=== PATIENT | male | born 1965 | race Caucasian/White ===

== ENCOUNTER 2017-03-08 16:01 | Emergency (ER) | payer BC ==
[2017-03-08 16:16] VITALS: BP 139/97
--- NOTE | 2017-03-08 17:17 | EDM.PDOCBH ---
ED HPI GENERAL MEDICAL PROBLEM - General Chief Complaint: Behavioral/Psych Stated Complaint: DEPRESSION Time Seen by Provider: 03/08/17 16:45 Source of Information: Reports: Patient History Limitations: Reports: No Limitations - History of Present Illness INITIAL COMMENTS - FREE TEXT/NARRATIVE: Patient is a 51-year-old male who presents to the ED complaining of depression. 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 States he's been under more stress recently with the drought and crop prices. He has been evaluated by [facility] for depression with modifications to his medications. Currently the patient is taking Effexor 150 mg twice a day and Remeron 45 mg every day. Has been taking clonazepam and olanzapine as needed. States they have been increasing his medications. States he continues to feel depressed, lacking motivation, and excessively tired. Denies any suicidal or homicidal ideations. No hallucinations noted. States he attempted to go to the [facility] partial hospitalization program last week and was scheduled to be seen on . The patient got scared did not show up. He called Monday and they told him it would be 2 weeks until he is able to be seen. He was hoping to be evaluated by Dr. Saavedra while in the ED via teleconferencing. Again patient has no suicidal or homicidal ideations. He has not been consuming any alcohol and does not use recreational drug use. He's been taking all his medications as prescribed. - Related Data Allergies Allergy/AdvReac Type Severity Reaction Status Date / Time No Known Allergies Allergy Verified 03/08/17 16:16 Home Meds: Home Meds ClonazePAM [KlonoPIN] 1 mg PO BID PRN 03/08/17 [History] Mirtazapine [Remeron] 45 mg PO DAILY 03/08/17 [History] Venlafaxine [Effexor XR] 150 mg PO BID 03/08/17 [History] buPROPion [Wellbutrin SR] 100 mg PO QAM #30 tab.sr 03/08/17 [Rx] Past Medical History - Past Health History Medical/Surgical History: Denies Medical/Surgical History Psychiatric History: Reports: Anxiety, Depression Social & Family History - Family History Family Medical History: Noncontributory - Tobacco Use Smoking Status *Q: Never Smoker - Caffeine Use Caffeine Use: Reports: None - Recreational Drug Use Recreational Drug Use: No ED ROS GENERAL - Review of Systems Review Of Systems: See Below Constitutional: Reports: No Symptoms Respiratory: Reports: No Symptoms Cardiovascular: Reports: No Symptoms GI/Abdominal: Reports: No Symptoms Neurological: Reports: No Symptoms Psychiatric: Reports: Depression. Denies: Agitation, Anxiety, Confusion, Cravings, Hallucinations, Homicidal Ideation, Mood Lability, Suicidal Ideation ED EXAM, BEHAVIORAL HEALTH - Physical Exam Exam: See Below Exam Limited By: No Limitations General Appearance: Alert, WD/WN, No Apparent Distress Ears: Hearing Grossly Normal Nose: Normal Inspection Throat/Mouth: Normal Voice, No Airway Compromise Neck: Normal Inspection, Supple Respiratory/Chest: No Respiratory Distress, Lungs Clear, Normal Breath Sounds, No Accessory Muscle Use Cardiovascular: Normal Peripheral Pulses, Regular Rate, Rhythm GI/Abdominal: Normal Bowel Sounds, Soft, Non-Tender, No Organomegaly Neurological: Alert, Normal Mood/Affect, CN II-XII Intact, Normal Cognition, No Motor/Sensory Deficits, Oriented x 3 Psychiatric: Alert, Normal Affect, Normal Cognition, Normal Mood, Oriented Skin Exam: Warm, Dry, Intact, Normal color COURSE, BEHAVIORAL HEALTH COMP - Course Vital Signs: Last Vital Signs Temp 97.7 F 03/08/17 16:12 Pulse 80 03/08/17 16:12 Resp 16 03/08/17 16:12 BP 139/97 H 03/08/17 16:12 Pulse Ox 95 03/08/17 16:12 Orders, Labs, Meds: Medications Discontinued Medications Generic Name Dose Route Start Last Admin Trade Name Freq PRN Reason Stop Dose Admin Cyclobenzaprine HCl 10 mg 03/08/17 18:37 Flexeril PO 03/08/17 18:38 ONETIME ONE Re-Assessment/Re-Exam: Patient requests to speak with Dr. Saavedra. He has been contacted with message left. No labs required. [address] Saavedra. He suggest stopping the only answer pain and starting the patient on Wellbutrin SR 100 mg tomorrow morning. Continue on the Effexor, Klonopin, and Remeron. Have the patient contact their office tomorrow morning to be scheduled for this appointment. 1829 Discussed this with the patient. He agrees with plan. Requests I contact [facility] in [place] to see if he can get in on the partial hospitalization program sooner than in 2 weeks. [address] Bates with [facility]. Suggested contacting Sara Marquez at [phone] and/or Lorrie at [phone]. Will discharge patient home with instructions as documented. Departure - Departure Time of Disposition: 18:54 Disposition: Home, Self-Care 01 Condition: Good Clinical Impression: Depressive disorder - Discharge Information Prescriptions: buPROPion [Wellbutrin SR] 100 mg PO QAM #30 tab.sr Referrals: [facility] [Primary Care Provider] - Forms: ED Department Discharge Additional Instructions: As discussed Dr. Saavedra requests discontining olanzapine and starting Wellbutrin SR 100 mg in the morning. Contact [facility]'s office tomorrow morning for the earliest appointment. In addition I spoke with Dr. Bates with [facility]. Suggest contacting Sara Marquez at [phone] and/or Lorrie at for partial hospitalization program. Refrain from alcohol. Return to the ED the for any new or worsening symptoms.
[2017-03-08] MEDS ORDERED: Cyclobenzaprine 10 MG Tab PO ONE (18:37)
== END 2017-03-08 19:15 | disposition home or self-care (01) ==
LOC: JD.ED 16:01
DX: F32.9 Major depressive disorder, single episode, unspecified (principal); F41.9 Anxiety disorder, unspecified; Z79.899 Other long term (current) drug therapy
CPT/HCPCS: 99283; 99285; A9270-GY